=== PATIENT | male | born 1995 | race Caucasian/White ===

== ENCOUNTER 2018-08-04 21:31 | Emergency (ER) | payer MEDICAID ==
[~2018-08-04] VITALS: Ht 180.3 cm; Wt 95.3 kg
--- NOTE | 2018-08-04 21:45 | NUR ---
Pt came to emergency dept. complaining abd pain, nausea, vomitting, and diarrhea after eating [employer] at 1830. Pt states that the chicken was raw and symptoms started 1 hr after eating. LUQ Abd pain 7/10 radiating to RUQ. Pt is AAXO4. Respirations even and unlabored. Pt put on the monitor and pulse ox. Pending eval from ER .
--- NOTE | 2018-08-04 21:50 | NUR ---
JM THAKUR AT BEDSIDE FOR EVAL.
[2018-08-04] MEDS ORDERED: ONDANSETRON HCL/PF 4 MG/2 ML VIAL IVP ONE (22:00)
[2018-08-04] MEDS ORDERED: IV NS 0.9% 1,000 ML BAG IV ONE (22:00)
[2018-08-04] MEDS ORDERED: KETOROLAC TROMETHAMINE INJ 30 MG/ML VIAL IV ONE (22:00)
[2018-08-04] MEDS ORDERED: KETOROLAC TROMETHAMINE INJ 30 MG/ML VIAL ONE (22:05)
[2018-08-04] MEDS ORDERED: ONDANSETRON HCL/PF 4 MG/2 ML VIAL ONE (22:05)
--- NOTE | 2018-08-04 22:46 | NUR ---
JM THAKUR AT BEDSIDE FOR RE-EVAL.
[2018-08-04 23:00] VITALS: BP 115/78
--- NOTE | 2018-08-04 23:00 | NUR ---
Patient discharged to home in stable condition. Written and verbal after care instructions given. Patient verbalizes understanding of instruction. IV removed. Catheter intact and site benign. Pressure and 4x4 applied to site. No bleeding noted. Pt ambulatory with steady gait.
== END 2018-08-04 23:01 | disposition home or self-care (01) ==
LOC: ER 21:36
DX: T62.8X1A Toxic effect of other specified noxious substances eaten as food, accidental (unintentional), initial encounter (principal); R11.2 Nausea with vomiting, unspecified; F17.200 Nicotine dependence, unspecified, uncomplicated; Z60.2 Problems related to living alone; Y92.89 Other specified places as the place of occurrence of the external cause
CPT/HCPCS: J1885; J2405; J7030

== ENCOUNTER 2018-11-24 01:09 | Emergency (ER) | payer MEDICAID ==
[~2018-11-24] VITALS: Ht 180.3 cm; Wt 90.7 kg
--- NOTE | 2018-11-24 01:20 | NUR ---
BIBS REPORTED HIS WS TREATED FOR STD AND HE WAS TOLD THAT HE NEEDS TO BE TREATED WELL. DENIED ANY SYMPTOMS. AFEBRILE. NO PAIN OR DISCOMFORT.
--- NOTE | 2018-11-24 02:08 | NUR ---
Patient discharged to home in stable condition. Pt refused Written and verbal after care instructions . rx given. Patient verbalized understanding of instruction.
[2018-11-24 02:09] VITALS: BP 137/79
== END 2018-11-24 02:10 | disposition home or self-care (01) ==
LOC: ER 01:13
DX: A64 Unspecified sexually transmitted disease (principal); F17.200 Nicotine dependence, unspecified, uncomplicated; Z90.89 Acquired absence of other organs; Z60.2 Problems related to living alone

== ENCOUNTER 2022-07-31 11:43 | Emergency (ER) | payer MEDICAID ==
[~2022-07-31] VITALS: Ht 175.3 cm; Wt 69.9 kg
[2022-07-31 11:47] VITALS: BP 143/78
--- NOTE | 2022-07-31 12:10 | NUR ---
Patient eloped from facility. ER MD notified.
--- NOTE | 2022-07-31 13:30 | NUR ---
RE-REGISTERED PATIENT. BROUGHT TO ROOM 13
--- NOTE | 2022-07-31 13:46 | NUR ---
CONFIRMED W/ LAB THAT PT'S URINE SAMPLE IS STILL AVAILABLE WITH THEM.
[2022-07-31 14:25] LABS: BASOPHILS # (AUTO) 0.1 K/uL (0.0-0.2); BASOPHILS % (AUTO) 1.4 % (0.0-2.0); EOSINOPHILS % (AUTO) 0.7 % (0.0-6.0); HEMATOCRIT 49 % (39-51); LYMPHOCYTES # (AUTO) 0.6 K/uL (0.8-4.8); MEAN CORPUSCULAR HGB CONC 33 g/dl (31.0-36.0); MEAN CORPUSCULAR VOLUME 86 fL (80-96); MONOCYTES # (AUTO) 0.3 K/uL (0.1-1.30); MONOCYTES % (AUTO) 7.8 % (2.0-12.0); NEUTROPHILS # (AUTO) 2.8 K/uL (1.8-8.9); NEUTROPHILS % (AUTO) 74.1 % (43.0-81.0); PLATELET COUNT (AUTO) 154 K/uL (150-450); RED BLOOD CELL COUNT(AUTO) 5.68 MIL/uL (4.5-6.0); WHITE BLOOD COUNT (AUTO) 3.8 K/uL (4.3-11.0)
[2022-07-31 14:47] LABS: BILIRUBIN,DIRECT 0.2 mg/dL (0.0-0.2); BILIRUBIN,TOTAL 0.6 mg/dL (0.2-1.0); CALCIUM, SERUM 8.9 mg/dL (8.5-10.1); CREATININE 1.2 mg/dL (0.6-1.3); POTASSIUM 3.5 mmol/L (3.5-5.1); TOTAL PROTEIN, SERUM 7.2 g/dL (6.4-8.2)
[2022-07-31 14:52] LABS: BILIRUBIN,URINE 1+ (NEGATIVE); COLOR,URINE YELLOW (YELLOW); LEUKOCYTE ESTERASE ,URINE NEGATIVE (NEGATIVE); NITRITE, URINE NEGATIVE (NEGATIVE); PROTEIN,URINE 2+ mg/dl (NEGATIVE); UGLUCOSE NEGATIVE (NEGATIVE); UROBILINOGEN,URINE 0.2 EU/dL (0.2)
[2022-07-31] MEDS ORDERED: IV NS 0.9% 1,000 ML BAG IV ONE (15:00)
--- NOTE | 2022-07-31 15:00 | NUR ---
PT TAKEN TO RADIOLOGY
[2022-07-31 16:08] LABS: BACTERIA,URINE None seen /HPF (None Seen); MUCUS,URINE Moderate /LPF (None Seen); RBC,URINE 0-2 /HPF (0-2); WBC,URINE 0-2 /HPF (0-3)
--- NOTE | 2022-07-31 16:50 | NUR ---
IV removed. Catheter intact and site benign. Pressure and 4x4 applied to site. No bleeding noted.
[2022-07-31] MEDS ORDERED: MAG HYDROX/AL HYDROX/SIMETH 30 ML UDC ONE (16:55)
[2022-07-31] MEDS ORDERED: LIDOCAINE VISCOUS 2% UD 15 ML UDC ONE (16:56)
[2022-07-31] MEDS ORDERED: ONDANSETRON 4 MG TAB.RAPDIS ONE (16:56)
[2022-07-31] MEDS ORDERED: ONDANSETRON 4 MG TAB.RAPDIS PO ONE (17:00)
[2022-07-31] MEDS ORDERED: KETOROLAC TROMETHAMINE INJ 60 MG/2 ML VIAL IM ONE (17:00)
[2022-07-31] MEDS ORDERED: LIDOCAINE VISCOUS 2% UD 15 ML UDC MM ONE (17:00)
[2022-07-31] MEDS ORDERED: MAG HYDROX/AL HYDROX/SIMETH 30 ML UDC PO ONE (17:00)
--- NOTE | 2022-07-31 17:00 | NUR ---
Patient discharged to home in stable condition. Written and verbal after care instructions given. Patient verbalizes understanding of instruction.
[2022-07-31] MEDS ORDERED: ONDA4TAB5 PO (17:01)
== END 2022-07-31 17:06 | disposition home or self-care (01) ==
LOC: ER 11:53
DX: R10.84 Generalized abdominal pain (principal); R11.2 Nausea with vomiting, unspecified; Z90.89 Acquired absence of other organs; Z90.49 Acquired absence of other specified parts of digestive tract; Z60.2 Problems related to living alone; Z79.899 Other long term (current) drug therapy
CPT/HCPCS: 99284; 74176; 96360; 85025; 80048; 83690; 80076; 81001; 36415; J7030; Q0162